=== PATIENT | male | born 1960 | race Hispanic/Latino ===

== ENCOUNTER → 2021-09-16 | Outpatient (CLI) | payer OTHER, MEDICARE | END | disposition home or self-care (01) | LOC: SHCH 10:00 | PROVIDERS: ATTEND Internal Medicine Cardiovascular Disease | DX: I87.2 Venous insufficiency (chronic) (peripheral) (principal) | CPT/HCPCS: 93970 ==

== ENCOUNTER → 2022-07-26 | Outpatient (CLI) | payer OTHER, MEDICARE | END | disposition home or self-care (01) | LOC: SHCH 15:06 | PROVIDERS: ATTEND Internal Medicine Cardiovascular Disease | DX: I87.2 Venous insufficiency (chronic) (peripheral) (principal); Z98.890 Other specified postprocedural states | CPT/HCPCS: 93971 ==

== ENCOUNTER → 2022-08-04 | Outpatient (CLI) | payer OTHER, MEDICARE | END | disposition home or self-care (01) | LOC: SHCH 12:04 | PROVIDERS: ATTEND Internal Medicine Cardiovascular Disease | DX: I87.2 Venous insufficiency (chronic) (peripheral) (principal); Z98.890 Other specified postprocedural states | CPT/HCPCS: 93971 ==

== ENCOUNTER → 2022-09-01 | Outpatient (CLI) | payer OTHER, MEDICARE ==
[2022-09-01 16:22] LABS: BASOPHILS % (AUTO) 0.6 % (0.0-5.0); EOSINOPHILS % (AUTO) 0.6 % (0.0-8.0); LYMPHOCYTES % (AUTO) 17.2 % (21.0-51.0); MEAN CORPUSCULAR HEMOGLOBIN 30.6 pg (27.0-33.0); MEAN CORPUSCULAR HGB CONC 31.7 g/dL (32.0-36.0); MEAN CORPUSCULAR VOLUME 96.5 fL (79-99); MONOCYTES % (AUTO) 6.8 % (3.0-13.0); NEUTROPHILS % (AUTO) 74.6 % (40.0-77.0); PLATELET COUNT (AUTO) 167 K/uL (130-400); RED BLOOD CELL COUNT(AUTO) 4.25 MIL/uL (4.50-6.20); RED CELL DISTRIBUTION WIDTH 12.6 % (11.0-15.5); WHITE BLOOD COUNT (AUTO) 5.4 K/uL (4.8-10.8)
[2022-09-01 16:34] LABS: INR 0.99 (0.85-1.15); PROTHROMBIN TIME 10.8 SEC (9.6-11.6)
[2022-09-01 16:35] LABS: PARTIAL THROMBOPLASTIN TIME 29.3 SEC (26.3-35.5)
[2022-09-01 16:39] LABS: CREATININE 1.4 mg/dL (0.5-1.5); POTASSIUM 3.9 mmol/L (3.5-5.1)
== END | disposition home or self-care (01) ==
LOC: LAB 11:13
PROVIDERS: ATTEND Internal Medicine Cardiovascular Disease
DX: Z51.81 Encounter for therapeutic drug level monitoring (principal); I25.10 Atherosclerotic heart disease of native coronary artery without angina pectoris; I87.2 Venous insufficiency (chronic) (peripheral); I11.9 Hypertensive heart disease without heart failure; G47.33 Obstructive sleep apnea (adult) (pediatric); G20 Parkinson's disease; E78.5 Hyperlipidemia, unspecified; R60.9 Edema, unspecified; Z79.899 Other long term (current) drug therapy
CPT/HCPCS: 36415; 80048; 85025; 85610; 85730

== ENCOUNTER → 2022-11-12 | Outpatient (CLI) | payer OTHER, MEDICARE ==
[2022-11-12 15:30] LABS: BASOPHILS % (AUTO) 0.6 % (0.0-5.0); HEMATOCRIT 35.4 % (42-54); MEAN CORPUSCULAR HEMOGLOBIN 30.6 pg (27.0-33.0); MEAN CORPUSCULAR HGB CONC 32.2 g/dL (32.0-36.0); MEAN CORPUSCULAR VOLUME 95.2 fL (79-99); MONOCYTES % (AUTO) 6.8 % (3.0-13.0); NEUTROPHILS % (AUTO) 65.2 % (40.0-77.0); PLATELET COUNT (AUTO) 161 K/uL (130-400); RED BLOOD CELL COUNT(AUTO) 3.72 MIL/uL (4.50-6.20); RED CELL DISTRIBUTION WIDTH 12.6 % (11.0-15.5); WHITE BLOOD COUNT (AUTO) 5.2 K/uL (4.8-10.8)
[2022-11-12 15:37] LABS: POTASSIUM 3.9 mmol/L (3.5-5.1)
[2022-11-12 15:38] LABS: CREATININE 1.4 mg/dL (0.5-1.5)
[2022-11-12 15:41] LABS: INR 0.94 (0.85-1.15); PROTHROMBIN TIME 10.3 SEC (9.6-11.6)
[2022-11-12 15:59] LABS: PARTIAL THROMBOPLASTIN TIME 29.6 SEC (26.3-35.5)
== END | disposition home or self-care (01) ==
LOC: LAB 11:44
PROVIDERS: ATTEND Internal Medicine Cardiovascular Disease
DX: I87.2 Venous insufficiency (chronic) (peripheral) (principal); I87.1 Compression of vein; I11.9 Hypertensive heart disease without heart failure; I25.10 Atherosclerotic heart disease of native coronary artery without angina pectoris; M79.89 Other specified soft tissue disorders; E78.5 Hyperlipidemia, unspecified; G20 Parkinson's disease; G47.33 Obstructive sleep apnea (adult) (pediatric); E66.9 Obesity, unspecified; Z68.33 Body mass index [BMI] 33.0-33.9, adult; Z95.820 Peripheral vascular angioplasty status with implants and grafts; Z79.02 Long term (current) use of antithrombotics/antiplatelets; Z79.899 Other long term (current) drug therapy; Z79.82 Long term (current) use of aspirin
CPT/HCPCS: 36415; 80048; 85025; 85610; 85730

== ENCOUNTER → 2023-03-22 | Outpatient (CLI) | payer OTHER, MEDICARE ==
[~2023-03-22] MED LIST: CARB-336 PO; EZET10TA48 PO; FURO40TA7 PO; GABA-529 PO; METO-408 PO; NITR0.4T50 SL; OXYB5TAB15 PO; PANT40TA PO; PRAM0.5T3 PO; RANO500T2 PO; SOLI5 PO
== END | disposition home or self-care (01) ==
LOC: SHCH 14:02
PROVIDERS: ATTEND Internal Medicine Cardiovascular Disease
DX: I87.2 Venous insufficiency (chronic) (peripheral) (principal)
CPT/HCPCS: 93970

== ENCOUNTER 2023-06-12 15:14 | Emergency (ER) | payer OTHER, MEDICARE ==
[~2023-06-12] VITALS: Ht 182.9 cm; Wt 104.3 kg
[~2023-06-12 15:14] MED LIST changes: -OXYB5TAB15 PO; +OXYB5TAB20 PO
[2023-06-12] MEDS ORDERED: LIDOCAINE HCL 1% 20 ML VIAL ONE (16:52)
[2023-06-12 16:56] VITALS: BP 126/77; PULSE 60; RESP 16; O2SAT 96
[2023-06-12] MEDS ORDERED: OCTYL 2-CYANOACRYLATE 1 EACH TP ONE (17:00)
[2023-06-12] MEDS ORDERED: LIDOCAINE HCL 1% 20 ML VIAL INJ ONE (17:00)
== END 2023-06-12 17:01 | disposition home or self-care (01) ==
LOC: EDH 15:14
DX: S01.112A Laceration without foreign body of left eyelid and periocular area, initial encounter (principal); G20.A1 Parkinson's disease without dyskinesia, without mention of fluctuations; I10 Essential (primary) hypertension; E78.00 Pure hypercholesterolemia, unspecified; Z79.899 Other long term (current) drug therapy; W01.0XXA Fall on same level from slipping, tripping and stumbling without subsequent striking against object, initial encounter; Y93.89 Activity, other specified; Y92.89 Other specified places as the place of occurrence of the external cause; Y99.8 Other external cause status
CPT/HCPCS: 12001; 70450; 72125; 96361

== ENCOUNTER → 2023-10-17 | Outpatient (CLI) | payer OTHER, MEDICARE ==
[2023-10-17] MEDS: REGADENOSON 0.4 MG/5 ML PF SYG IVP ONE (15:18)
== END | disposition home or self-care (01) ==
LOC: SHCH 08:18
PROVIDERS: ATTEND Internal Medicine Cardiovascular Disease
DX: I51.7 Cardiomegaly (principal); I20.9 Angina pectoris, unspecified; R06.09 Other forms of dyspnea; R07.89 Other chest pain
CPT/HCPCS: 78452; 96374; 93017; J2785; A9500 ×2

== ENCOUNTER 2024-01-14 12:33 | Inpatient (IN) | payer OTHER, MEDICARE ==
[~2024-01-14] VITALS: Ht 182.9 cm; Wt 93.0 kg
[2024-01-14 12:59] LABS: BASOPHILS # (AUTO) 0.02 K/uL (0.00-0.20); BASOPHILS % (AUTO) 0.3 % (0.0-5.0); EOSINOPHILS # (AUTO) 0.02 K/uL (0.00-0.70); EOSINOPHILS % (AUTO) 0.3 % (0.0-8.0); HEMATOCRIT 36.3 % (42-54); IMMATURE GRANULOCYTE ABSOLUTE 0.02 K/uL (0-1); LYMPHOCYTES # (AUTO) 0.6 K/uL (1.0-4.8); LYMPHOCYTES % (AUTO) 9.8 % (21.0-51.0); MEAN CORPUSCULAR HGB CONC 33.9 g/dL (32.0-36.0); MEAN CORPUSCULAR VOLUME 91.4 fL (79-99); MONOCYTES # (AUTO) 0.3 K/uL (0.1-1.0); MONOCYTES % (AUTO) 5.3 % (3.0-13.0); NEUTROPHILS # (AUTO) 5.1 K/uL (1.8-7.7); PLATELET COUNT (AUTO) 147 K/uL (130-400); RED BLOOD CELL COUNT(AUTO) 3.97 MIL/uL (4.50-6.20); RED CELL DISTRIBUTION WIDTH 12.7 % (11.0-15.5); WHITE BLOOD COUNT (AUTO) 6.1 K/uL (4.8-10.8)
[2024-01-14] MEDS: ASPIRIN 81MG CHEW TAB PO ONE (13:12)
[2024-01-14 13:14] LABS: ALBUMIN 3.6 g/dL (3.5-5.0); BILIRUBIN,TOTAL 0.7 mg/dL (0.2-1.0); CREATININE 1.1 mg/dL (0.5-1.3); POTASSIUM 3.9 mmol/L (3.5-5.1); TOTAL PROTEIN, SERUM 6.6 g/dL (6.0-8.3)
[2024-01-14 14:08] LABS: APPEARANCE,URINE CLEAR (CLEAR); BILIRUBIN,URINE NEGATIVE (NEGATIVE); COLOR,URINE YELLOW (YELLOW); GLUCOSE, URINE (UA) NEGATIVE (NEGATIVE); KETONES,URINE NEGATIVE (NEGATIVE); LEUKOCYTE ESTERASE ,URINE NEGATIVE Leu/uL (NEGATIVE); NITRATE,URINE NEGATIVE (NEGATIVE); OCCULT BLOOD,URINE NEGATIVE (NEGATIVE); PH,URINE 6.5 (5.0-8.0); PROTEIN,URINE NEGATIVE (NEGATIVE); UROBILINOGEN,URINE 0.2 mg/dL (0.2-1.0)
[2024-01-14 14:09] LABS: ADD UA MICROSCOPIC NO
[2024-01-14] MEDS: 0.9%NACL 1000ML 1,000 ML IV ONE (15:30)
[2024-01-14 18:41] LABS: HEMOGLOBIN A1C 5.6 % (4.0-6.0)
[2024-01-14 18:46] LABS: THYROID STIMULATING HORMONE 0.58 uIU/mL (0.36-3.74)
[2024-01-14] MEDS ORDERED: CARB-38 PO (19:54)
[2024-01-14] MEDS ORDERED: CHOL100046 PO (20:29)
[2024-01-14] MEDS ORDERED: FOLI0.8T43 PO (20:29)
[2024-01-14] MEDS ORDERED: SOLI10TA7 PO (20:29)
[2024-01-14] MEDS: PANTOPRAZOLE 40 MG TAB DR PO ONE (22:13)
[2024-01-14 22:14] LABS: SARS-CoV-2, RNA, NAAT NEGATIVE SARS CoV-2 (NEGATIVE)
[2024-01-14 22:18] LABS: INFLUENZA TYPE A Negative For Type A (NEGATIVE); INFLUENZA TYPE B Negative For Type B (NEGATIVE)
[2024-01-14 22:35] VITALS: BP 137/80; PULSE 46; RESP 16
[2024-01-15] VITALS (7 sets, daily range): BP systolic 116–130; BP diastolic 71–81; PULSE 40–69; RESP 15–18; O2SAT 100
[2024-01-15 06:11] LABS: BASOPHILS # (AUTO) 0.03 K/uL (0.00-0.20); BASOPHILS % (AUTO) 0.6 % (0.0-5.0); EOSINOPHILS # (AUTO) 0.06 K/uL (0.00-0.70); EOSINOPHILS % (AUTO) 1.1 % (0.0-8.0); IMMATURE GRANULOCYTE ABSOLUTE 0.03 K/uL (0-1); LYMPHOCYTES # (AUTO) 0.9 K/uL (1.0-4.8); MEAN CORPUSCULAR VOLUME 94.1 fL (79-99); MONOCYTES # (AUTO) 0.5 K/uL (0.1-1.0); MONOCYTES % (AUTO) 8.3 % (3.0-13.0); NEUTROPHILS # (AUTO) 3.9 K/uL (1.8-7.7); NEUTROPHILS % (AUTO) 72.4 % (40.0-77.0); PLATELET COUNT (AUTO) 118 K/uL (130-400); RED BLOOD CELL COUNT(AUTO) 3.93 MIL/uL (4.50-6.20); RED CELL DISTRIBUTION WIDTH 12.4 % (11.0-15.5); WHITE BLOOD COUNT (AUTO) 5.4 K/uL (4.8-10.8)
[2024-01-15 06:16] LABS: CREATININE 1.2 mg/dL (0.5-1.3); POTASSIUM 3.3 mmol/L (3.5-5.1)
[2024-01-15] MEDS ORDERED: POTASSIUM CHLORIDE 10% ELIXIR 20 MEQ/15 ML UDCUP PO PRN (07:00)
[2024-01-15] MEDS ORDERED: POTASSIUM CHLORIDE 20MEQ/100ML 100 ML IV PRN (07:00)
[2024-01-15] MEDS ORDERED: KCL 20 MEQ ERTAB PO PRN (07:00)
[2024-01-15] MEDS: METOPROLOL SUCCINATE 25 MG TAB.SR.24H PO SCH (09:00)
[2024-01-15] MEDS ORDERED: CARBIDOPA LEVO PO SCH (09:00)
[2024-01-15] MEDS: CARBIDOPA LEVO PO SCH (09:00)
[2024-01-15] MEDS: SOLIFENACIN SUCCINATE 10 MG PO SCH (09:00)
[2024-01-15] MEDS ORDERED: PRAMIPEXOLE DI-HCL 0.25 MG TABLET PO SCH (09:00)
[2024-01-15] MEDS: PANTOPRAZOLE 40 MG TAB DR PO SCH (09:08)
[2024-01-15] MEDS: Vitamin B Complex/Vit C/Folic Acid PO SCH (09:08)
[2024-01-15] MEDS: RANOLAZINE 500 MG TAB.SR.12H PO SCH (09:08)
[2024-01-15] MEDS: ASPIRIN 81MG CHEW TAB PO SCH (09:10)
[2024-01-15] MEDS: FUROSEMIDE 40 MG TABLET PO SCH (09:11)
[2024-01-15 10:15] LABS: ABG BASE EXCESS 1.7 mmol/L (-2.0-3.0); ABG HCO3 26.4 mmol/L (21.0-28.0); ABG OXYGEN SATURATION 96.1 % (95.0-99.0); ABG PCO2 42 mmHg (35-48); ABG PH 7.419 (7.35-7.450); DEVICE COMMENT RR; PO2, ARTERIAL BG 80.7 mmHg (83.0-108.0); VENT MODE, BG RA (ROOM AIR)
[2024-01-16] VITALS (9 sets, daily range): BP systolic 117–145; BP diastolic 52–84; PULSE 43–91; RESP 14–18; O2SAT 100
[2024-01-16] MEDS: LACTULOSE 20 GM/30 ML UDCUP PO PRN (05:30)
[2024-01-16] MEDS: ONDANSETRON 4MG INJ IVP PRN (05:30)
[2024-01-16 07:53] LABS: BASOPHILS # (AUTO) 0.02 K/uL (0.00-0.20); BASOPHILS % (AUTO) 0.4 % (0.0-5.0); EOSINOPHILS # (AUTO) 0.26 K/uL (0.00-0.70); EOSINOPHILS % (AUTO) 5.6 % (0.0-8.0); HEMATOCRIT 38.2 % (42-54); IMMATURE GRANULOCYTE ABSOLUTE 0.01 K/uL (0-1); LYMPHOCYTES # (AUTO) 0.9 K/uL (1.0-4.8); MEAN CORPUSCULAR HEMOGLOBIN 30.8 pg (27.0-33.0); MEAN CORPUSCULAR VOLUME 90.5 fL (79-99); MONOCYTES # (AUTO) 0.3 K/uL (0.1-1.0); MONOCYTES % (AUTO) 7.1 % (3.0-13.0); NEUTROPHILS # (AUTO) 3.1 K/uL (1.8-7.7); NEUTROPHILS % (AUTO) 67.7 % (40.0-77.0); PLATELET COUNT (AUTO) 140 K/uL (130-400); RED BLOOD CELL COUNT(AUTO) 4.22 MIL/uL (4.50-6.20); RED CELL DISTRIBUTION WIDTH 12.4 % (11.0-15.5); WHITE BLOOD COUNT (AUTO) 4.6 K/uL (4.8-10.8)
[2024-01-16 08:15] LABS: CREATININE 1.2 mg/dL (0.5-1.3); POTASSIUM 3.5 mmol/L (3.5-5.1)
[2024-01-16] MEDS: POLYETHYLENE GLYCOL 3350 17 GM POWD.PACK PO SCH (08:49)
[2024-01-16] MEDS: ENOXAPARIN SODIUM 30 MG/0.3 ML SQ SCH (08:50)
[2024-01-16] MEDS: ACETAMINOPHEN 500 MG TABLET PO PRN (17:45)
[2024-01-17] VITALS (7 sets, daily range): BP systolic 128–138; BP diastolic 73–83; PULSE 45–62; RESP 16–18; O2SAT 100
[2024-01-17 11:03] LABS: CHOLESTEROL 136 mg/dL (<200); HDL CHOLESTEROL 60 mg/dL (29-71); LDL DIRECT 69 mg/dL (0-99); TRIGLYCERIDES 37 mg/dL (30-200)
[2024-01-18] VITALS: BP 140/73; PULSE 43; RESP 18
[2024-01-18 04:00] VITALS: BP 133/73; PULSE 43; RESP 18
[2024-01-18 08:00] VITALS: BP 144/76; PULSE 50; RESP 17; O2SAT 100
[2024-01-18 12:00] VITALS: BP 143/88; PULSE 48; RESP 17
== END 2024-01-18 15:40 | DRG 392 ==
LOC: EDH 12:33 → EDHIP 18:15 → 3AH 20:50 → UNDODISIN 01-17 22:22
PROVIDERS: ADMIT Internal Medicine; ATTEND Internal Medicine
DX: K21.9 Gastro-esophageal reflux disease without esophagitis (principal); G20.A1 Parkinson's disease without dyskinesia, without mention of fluctuations; Z20.822 Contact with and (suspected) exposure to COVID-19; G25.81 Restless legs syndrome; E78.00 Pure hypercholesterolemia, unspecified; G47.33 Obstructive sleep apnea (adult) (pediatric); I10 Essential (primary) hypertension; I25.10 Atherosclerotic heart disease of native coronary artery without angina pectoris; Z60.8 Other problems related to social environment; Z91.199 Patient's noncompliance with other medical treatment and regimen due to unspecified reason
CPT/HCPCS: 36415; 36600; 70450; 71045; 76000; 76376; 80048; 80053; 80061; 81003; 82306; 82550; 82803; 83036; 83880; 84145; 84443; 84484; 85025; 86140; 87635; 87804; 93005; 93306; 93356; G0378; J1650; J2405